=== PATIENT | female | born 1955 | race Caucasian/White ===

== ENCOUNTER → 2021-04-30 | Outpatient (CLI) | payer MEDICARE, OTHER | LOC: ORTHO 08:34 | PROVIDERS: ATTEND Orthopaedic Surgery | DX: M17.12 Unilateral primary osteoarthritis, left knee (principal) | CPT/HCPCS: 99203 ==

== ENCOUNTER → 2021-05-07 | Outpatient (CLI) | payer MEDICARE, OTHER ==
[~2021-05-07] MED LIST: ACET325C7 PO; ATOR10TA66 PO; CITA20TA12 PO; DIPH25TA65 PO; EMPA10TA PO; L.AC1CAP6 PO; LOSA50TA63 PO; MELO5CAP3 PO; METF-399 PO; MV-M1TAB20 PO; OMEP20TA7 PO
[2021-05-07 08:58] LABS: CLARITY,URINE CLEAR; COLOR,URINE YELLOW; GLUCOSE, URINE (UA) 3+ (NEGATIVE); KETONES,URINE TRACE (NEGATIVE); LEUKOCYTE ESTERASE ,URINE NEGATIVE (NEGATIVE); NITRITE,URINE NEGATIVE (NEGATIVE); PH,URINE 5.5 (5-9); PROTEIN,URINE TRACE (NEGATIVE)
[2021-05-07 09:02] LABS: CALCIUM 9.6 MG/DL (8.5-10.1)
[2021-05-07 09:06] LABS: CREATININE SERUM 1.01 MG/DL (0.60-1.30)
[2021-05-07 09:09] LABS: BASOPHILS % (AUTO) 0 % (0-10); EOSINOPHILS # (AUTO) 0.1 10^3/uL (0.0-0.3); EOSINOPHILS % (AUTO) 1 % (0-10); HEMATOCRIT 40 % (35-52); HEMOGLOBIN 12.4 g/dL (11.5-16.0); LYMPHOCYTES # (AUTO) 2.5 10^3/uL (1.0-4.0); LYMPHOCYTES % (AUTO) 34 % (12-44); MEAN CORPUSCULAR HEMOGLOBIN 29 pg (25-34); MEAN CORPUSCULAR HGB CONC 31 g/dL (32-36); MEAN CORPUSCULAR VOLUME 93 fL (80-99); MEAN PLATELET VOLUME 8.5 fL (9.0-12.2); MONOCYTES # (AUTO) 0.5 10^3/uL (0.0-1.0); MONOCYTES % (AUTO) 7 % (0-12); NEUTROPHILS # (AUTO) 4.1 10^3/uL (1.8-7.8); NEUTROPHILS % (AUTO) 57 % (42-75); PLATELET COUNT 241 10^3/uL (130-400); WHITE BLOOD COUNT 7.1 10^3/uL (4.3-11.0)
--- NOTE | 2021-05-07 09:11 | Diagnostic Imaging Report ---
INDICATION: Left knee pain. FINDINGS: Four views of the left knee show advanced degenerative changes of the medial tibiofemoral joint space and patellofemoral joint space with joint space narrowing and large osteophytes forming at the articular margins. The joint space is mildly narrowed. IMPRESSION: Tricompartmental degenerative changes. This is most severe in the medial tibiofemoral and patellofemoral joint compartments. Dictated by: Dictated on workstation # [id number]
[2021-05-07 09:20] LABS: BACTERIA,URINE FEW /HPF; BILIRUBIN,URINE 1+ (NEGATIVE); RBC,URINE RARE /HPF; SQUAMOUS EPITHELIAL CELL,UR 0-2 /HPF; WBC,URINE RARE /HPF
[2021-05-07 09:29] LABS: INR 0.9 (0.8-1.4); PROTHROMBIN TIME PATIENT 12.4 SEC (12.2-14.7)
== END ==
LOC: RAD 08:17
PROVIDERS: ATTEND Orthopaedic Surgery
DX: Z00.00 Encounter for general adult medical examination without abnormal findings (principal); M17.12 Unilateral primary osteoarthritis, left knee
CPT/HCPCS: 36415; 73564; 80048; 81000; 83036; 85025; 85610; 85730

== ENCOUNTER → 2021-05-12 | Outpatient (CLI) | payer MEDICARE, OTHER ==
[~2021-05-12] VITALS: Ht 152.4 cm; Wt 73.6 kg
== END | disposition home or self-care (01) ==
LOC: PREOP 05:38
PROVIDERS: ATTEND Orthopaedic Surgery
DX: Z01.818 Encounter for other preprocedural examination (principal)

== ENCOUNTER 2021-05-18 08:23 | Inpatient (IN) | payer MEDICARE, OTHER ==
[~2021-05-18] VITALS: Ht 152.4 cm; Wt 73.6 kg
[2021-05-18] VITALS (11 sets, daily range): BP systolic 104–160; BP diastolic 55–82
[2021-05-18] MEDS ORDERED: LACTATED RINGERS 1,000 ML IV PRN (08:45)
[2021-05-18] MEDS ORDERED: ceFAZolin INJECTION 1,000 MG VIAL IV ONE (08:45)
[2021-05-18] MEDS: LACTATED RINGERS 1,000 ML IV PRN ×2 (08:52→12:01)
[2021-05-18] MEDS ORDERED: MIDAZOLAM 2 MG/2 ML (VERSED) VIAL ONE ×2 (08:57→09:03)
[2021-05-18] MEDS ORDERED: ROPIVACAINE 5MG/ML 30ML VIAL ONE (08:57)
[2021-05-18] MEDS ORDERED: TRANEXAMIC ACID INJECTION 3,000 MG, SODIUM CHLORIDE 0.9% IRRIGATIO 150 ML IV NR ×2 (09:00)
[2021-05-18] MEDS ORDERED: ONDANSETRON 4 MG/2 ML (SDV) Z0FRAN ONE (09:02)
[2021-05-18] MEDS ORDERED: LIDOCAINE PF 2% 5 ML (XYLOCAINE) VIAL ONE (09:02)
[2021-05-18] MEDS ORDERED: fentaNYL INJ 100 MCG/2 ML AMP ONE ×2 (09:02→10:51)
[2021-05-18] MEDS ORDERED: SEVOFLURANE (ULTANE) 15 ML INHAL SOLN ONE (09:02)
[2021-05-18] MEDS ORDERED: proPOfol 200 MG/20 ML (DIPRIVAN) VIAL IV ONE (09:02)
[2021-05-18] MEDS ORDERED: TRANEXAMIC ACID 100 MG/ML 10 ML INJECTION ONE (09:02)
--- NOTE | 2021-05-18 09:58 | Progress Note-Pre Operative ---
Pre-Operative Progress Note H&P Reviewed The H&P was reviewed, patient examined and no changes noted. Date Seen by Provider: May 18, 2021 Time Seen by Provider: 09:50 Date H&P Reviewed: May 18, 2021 Time H&P Reviewed: 09:50 Pre-Operative Diagnosis: Left Knee Primary Osteoarthritis SCOT CHILDRESS MD May 18, 2021 09:58
--- NOTE | 2021-05-18 13:09 | Anesthesia-General Post-Op ---
General Patient Condition Mental Status/LOC: Same as Preop Cardiovascular: Satisfactory Nausea/Vomiting: Absent Respiratory: Satisfactory Pain: Controlled Complications: Absent Post Op Complications Complications None Follow Up Care/Instructions Patient Instructions None needed. Anesthesia/Patient Condition Patient Condition Patient is doing well, no complaints, stable vital signs, no apparent adverse anesthesia problems. No complications reported per nursing. GALO BATISTA CRNA May 18, 2021 13:09
[2021-05-18] MEDS ORDERED: morphine INJ 4 MG/ML 1 ML (VIAL/SYRINGE) IVP PRN (13:15)
[2021-05-18] MEDS ORDERED: MEPERIDINE (DEMEROL) INJ 50 MG/ML IVP ONE (13:15)
[2021-05-18] MEDS ORDERED: BISACODYL 5 MG (DULCOLAX) TABLET PO PRN (13:15)
[2021-05-18] MEDS ORDERED: PROMETHAZINE INJ 25 MG/ML (PHENERGAN) AMP IVP ONE (13:15)
[2021-05-18] MEDS ORDERED: ONDANSETRON 4 MG/2 ML (SDV) Z0FRAN IV PRN (13:15)
[2021-05-18] MEDS ORDERED: ACETAMINOPHEN 500 MG TAB (TYLENOL) PO PRN (13:15)
[2021-05-18] MEDS ORDERED: ONDANSETRON 4 MG/2 ML (SDV) Z0FRAN IVP PRN (13:15)
[2021-05-18] MEDS ORDERED: diphenhydrAMINE 25 MG TAB (BENADRYL) PO PRN (13:15)
[2021-05-18] MEDS ORDERED: MILK OF MAGNESIA 400 MG/5 ML 30 ML UDC PO PRN (13:15)
[2021-05-18] MEDS ORDERED: morphine INJ 10 MG/ML 1ML (SYR OR VIAL) IVP ONE (13:15)
--- NOTE | 2021-05-18 13:19 | Operative Report - Ortho ---
Operative Report Surgeon (s)/Road Advisor (s) Surgeon SCOT CHILDRESS MD Road Advisor n/a Pre-Operative Diagnosis Left Knee Primary Osteoarthritis Post-Operative Diagnosis same Operative Report Date of Procedure: May 18, 2021 Name of Procedure Performed: Left Total Knee Arthroplasty Description & Findings After obtaining informed consent and marking the patient in the preoperative holding area, the patient did receive IV antibiotics. Patient was taken to the operating room and anesthesia was induced. Surgical timeout was taken. The left lower extremity was prepped and draped in the usual sterile fashion. Incision was made and carried down to fascia. Arthrotomy was performed on the medial side of the patella. Patella was retracted laterally and knee was flexed. Found to have circumferential osteophtye around the distal femur as well as exposed bone in the medial compartment. Hole was made in the distal femur for the intramedullary distal femoral cutting guide. Resection was made then the femur was sized as a 3. 4-in-1 block for a size [address]. Anterior cut was made and there was no notch. Posterior cut was made followed by the chamfers. Box cut was performed. Lug holes were drilled. Attention was turned to the tibial side, extramedullary tibial guide was put into place and aligned with the tibial crest. It was set to take 2 mm off of the affected medial side. Drop kacie was used to confirm alignment. Resection was made and was parallel to the joint line. Tibial bone block was removed. Lamina unit secretary was put into place and the menisci and posterior osteophytes were removed. The knee was trialed with a size 3 femur and a size 2 tibia with a 9 mm poly trial. It was found to come out to full extension and flexed beyond 120 degrees. It was stable to varus and valgus stress throughout its range of motion. This was accepted. Knee was brought out into extension and the patella was measured at less than 20 mm of thickness. Osteophytes were removed from around the perimeter of the patella. Trial implants were removed. Tibial tray was pinned and punched. The cut bone surfaces were lavaged with pulsatile normal saline. Implants were opened and assembled on the back table. Cement was mixed. Cement was applied to the cut bone surface as well as the implant surface. A size 2 tibial component was impacted into placed and excess cement was removed using a [place]. A size 3 femoral component was impacted into place and excess cement was removed using a [place]. Tibial tray was lavaged with saline. A 9 mm thick polyethylene component was locked into placed and the locking mechanism was checked. Knee was brought into extension. The knee was irrigated with normal saline. Irrigation was removed and tranexamic acid was placed. A betadine soak was performed and the knee was irrigated again. Once the cement had set, the knee was once again trialed; found to come to full extension, flexed beyond 120 degrees, and was stable to varus and valgus stress. Further tranexamic acid was applied for hemostasis. Tourniquet was dropped and electrocautery was used for further hemostasis. Fascial layer was closed with #1 Ethibond. The subcutaneous layer was closed with 2-0 Vicryl. The skin was closed with a running subcuticular 3-0 V-loc. Wound was dressed with steri- strips, xeroform, 4x4s, ABD, webril, and NIDA wrap. Patient tolerated the procedure well and was stable to the recovery room. Anesthesia Type General plus regional Estimated Blood Loss 150 mL Specimen(s) collected/removed None SCOT CHILDRESS MD May 18, 2021 13:19
--- NOTE | 2021-05-18 13:27 | Diagnostic Imaging Report ---
INDICATION: Left knee surgery. TECHNIQUE: AP and lateral views of left knee are obtained. FINDINGS: There has been total left knee arthroplasty with gas and fluid in the knee joint and adjacent tissues. Alignment is normal. There is no fracture or malalignment. Atherosclerotic calcifications are noted. IMPRESSION: No evidence of immediate complication post recent total left knee arthroplasty. Dictated by: Dictated on workstation # [id number]
[2021-05-18] MEDS ORDERED: morphine INJ 10 MG/ML 1ML (SYR OR VIAL) ONE (13:31)
[2021-05-18] MEDS ORDERED: morphine INJ 4 MG/ML 1 ML (VIAL/SYRINGE) ONE (14:20)
--- NOTE | 2021-05-18 14:43 | Physical Therapy Progress Note ---
Therapy Progress Note Patient just returned from left TKR surgery and is too sedated to perform OOB activity. This PT place CPM 0-50 degrees and polar pack left LE. Family present and instructed for CPM to be removed by nursing staff after 2 hours. Family voices understanding 1 visit CPM/PADS ([id number]) TREVOR VILLEGAS PT May 18, 2021 14:43
[2021-05-18] MEDS: NS IV 1000 ML 1,000 ML IV SCH ×2 (14:50→15:02)
[2021-05-18] MEDS ORDERED: NICOTINE 7 MG (NICODERM) PATCH TD ONE (15:04)
[2021-05-18] MEDS ORDERED: KETOROLAC 30 MG/ML VIAL ONE (16:22)
[2021-05-18] MEDS: metFORMIN 500 MG (GLUCOPHAGE) TAB PO SCH (16:23)
[2021-05-18] MEDS: ASPIRIN E.C. 81 MG (ECOTRIN) TAB PO SCH (16:23)
[2021-05-18] MEDS: ceFAZolin INJECTION 1,000 MG in NS (IVPB) 50 ML IV SCH (20:18)
[2021-05-18] MEDS: DOCUSATE SODIUM 100 MG (COLACE) CAP PO SCH (20:20)
[2021-05-18] MEDS: AtorvaSTATin TABLET 10 MG TABLET PO SCH (20:20)
[2021-05-18] MEDS: CELECOXIB 100 MG (CeleBREX) CAP PO SCH (20:20)
[2021-05-18] MEDS ORDERED: NON-FORMULARY MEDICATION 1 EA EA (Metformin HCl 1,000 MG) PO SCH (21:00)
[2021-05-19] MEDS: ceFAZolin INJECTION 1,000 MG in NS (IVPB) 50 ML IV SCH (03:50)
[2021-05-19] MEDS: KETOROLAC 30 MG/ML VIAL IVP PRN ×3 (03:50→15:10)
[2021-05-19 03:51] VITALS: BP 136/63
[2021-05-19 05:39] LABS: HEMOGLOBIN 9.8 g/dL (11.5-16.0)
[2021-05-19] MEDS: MULTIVIT W/MINERALS TAB (THERAGRAN M) PO SCH (05:46)
[2021-05-19 08:00] VITALS: BP 126/74
--- NOTE | 2021-05-19 08:00 | Progress Note - Ortho ---
Progress Note Subjective Date of Exam 05/19/21 Chief Complaint POD #1 L TKA HPI/Events since last exam some difficulty with soreness, has been up and out of bed Review of Systems - Allergies: Coded Allergies: No Known Drug Allergies (Unverified , 05/12/21) Home Meds Reported Medications Omeprazole (Omeprazole) 20 Mg Tablet.dr, 20 MG PO DAILY, TAB 05/12/21 Acetaminophen (Tylenol) 325 Mg Capsule, 325 MG PO PRN, CAP 05/12/21 Diphenhydramine HCl (Benadryl Allergy) 25 Mg Tablet, 25 MG PO PRN, TAB 05/12/21 L.acidoph & Paracasei,B.lactis (Probiotic) 1 Each Capsule, 1 EACH PO DAILY, CAP 05/12/21 Mv-Mn/Iron/FA/Herbal Cmplx#190 (Vitamin D3 Complete Caplet) 1 Each Tablet, 1 EACH PO DAILY, TAB 05/12/21 Citalopram Hydrobromide (Celexa) 20 Mg Tablet, 20 MG PO DAILY, TAB 05/12/21 Atorvastatin Calcium (Atorvastatin Calcium) 10 Mg Tablet, 10 MG PO HS, TAB 05/12/21 Losartan Potassium (Losartan Potassium) 50 Mg Tablet, 50 MG PO DAILY, TAB 05/12/21 Metformin HCl (Metformin HCl) 1,000 Mg Tablet, 1000 MG PO BID, TAB 05/12/21 Meloxicam, Submicronized (Meloxicam) 5 Mg Capsule, 7.5 MG PO, CAP 05/12/21 Empagliflozin (Jardiance) 10 Mg Tablet, 10 MG PO DAILY, TAB 05/12/21 Objective Exam L Knee: Dressing C/D/superior portion of incision beginning to show, +DF of ankle, no s/s of DVT Vital Signs Vital Signs Date Time Temp Pulse Resp B/P (MAP) Pulse Ox O2 Delivery O2 Flow Rate FiO2 05/19/21 03:51 36.6 111 20 136/63 (87) 96 Nasal Cannula 2.00 05/18/21 23:08 36.8 100 20 121/58 (79) 97 Nasal Cannula 2.00 05/18/21 22:02 94 Nasal Cannula 2.00 05/18/21 20:15 91 Nasal Cannula 2.00 05/18/21 20:00 36.4 94 18 104/56 (72) 91 Nasal Cannula 2.00 05/18/21 16:20 35.9 100 19 115/55 (75) 95 Nasal Cannula 2.00 05/18/21 14:49 36.5 103 18 128/72 (90) 94 Nasal Cannula 2.00 05/18/21 13:54 Room Air 05/18/21 13:50 36.1 19 135/66 (89) 93 Room Air 05/18/21 13:40 20 133/71 (91) 93 OxyMask 2 05/18/21 13:30 20 142/82 (102) 96 OxyMask 2 05/18/21 13:30 OxyMask 2 05/18/21 13:20 20 132/70 (90) 94 OxyMask 2 05/18/21 13:15 OxyMask 3 05/18/21 13:10 18 141/66 (91) 96 OxyMask 4 05/18/21 12:59 37.1 16 114/71 (85) 98 OxyMask 6 05/18/21 12:59 OxyMask 6 05/18/21 08:35 36.2 98 20 160/80 (106) 94 Room Air I & O 05/19/21 07:00 Intake Total 2460 ml Output Total 400 ml Balance 2060 ml Lab Results Laboratory Tests 05/18/21 08:38: Glucometer 158H 05/19/21 05:28: Hemoglobin 9.8L, Hematocrit 33L Imaging 2 postop views of the left knee dated 05/18/21 were reviewed from PACS and demonstrated total knee arthroplasty without complication Assessment and Plan Assessment Left Knee Primary Osteoarthritis s/p L TKA Problem List Left Knee Primary Osteoarthritis s/p L TKA Plan PT/OT DVT Prophylaxis Proceed with dressing change today Plan for home with home health on Final Diagonsis Left Knee Primary Osteoarthritis s/p L TKA Level of the visit: Level 3 (global) SCOT CHILDRESS MD May 19, 2021 08:00
--- NOTE | 2021-05-19 08:28 | Anesthesia-Regional Post-Op ---
Regional Patient Condition Mental Status: Alert, Oriented x3 Circulation: Same as Pre-Op Headache: Absent Sensation: Full Recovery Motor Block: Absent Post Op Complications Complications None Follow Up Care/Instructions Patient Instructions None needed. Anesthesia/Patient Condition Patient is doing well, no complaints, stable vital signs, no apparent adverse anesthesia problems. No complications reported per nursing. BETTY TURNER CRNA May 19, 2021 08:28
--- NOTE | 2021-05-19 08:54 | Occupational Therapy Eval ---
OT Evaluation-General/PLF Medical Diagnosis Admission Date May 18, 2021 at 08:23 Medical Diagnosis: L TKR Onset Date: May 18, 2021 Therapy Diagnosis Therapy Diagnosis: L TKR Precautions Precautions/Isolations: Standard Precautions Safety Interventions: None Weight Bear Status Weight Bearing Restriction: Weight Bearing/Tolerated Location Restriction: L LE Referral Physician: Kayden Referral Reason: Evaluation/Treatment Medical History Current History post op day 1, s/p L TKR. Per patient, she lives with her daughter in a single story home. She was indep with all adls and shared iadl responsibilities with daughter. Pt was not using any AD prior to admission. Reviewed History: Yes Social History Home: Single Level Current Living Status: Children ADL-Prior Level of Function SCALE: Activities may be completed with or without assistive devices. 1-Iqladpckpb-feyaasw completes the activity by him/herself with no assistance from a helper. 5-Set-up or Clean-up Assistance-helper sets up or cleans up; patient completes activity. [place] assists only prior to or following the activity. 4-Supervision or Touching Assistance-helper provides verbal cues and/or touching/steadying and/or contact guard assistance as patient completes activity. Assistance may be provided throughout the activity or intermittently. 3-Partial/Moderate Assistance-helper does LESS THAN HALF the effort. [place] lifts, holds or supports trunk or limbs, but provides less than half the effort. 2-Substantial/Maximal Assistance-helper does MORE THAN HALF the effort. [place] lifts or holds trunk or limbs and provides more than half the effort. 8-Zkppqkeni-npajuv does ALL the effort. Patient does none of the effort to complete the activity. Or, the assistance of 2 or more helpers is required for the patient to complete the activity. If activity was not attempted, code reason: 7-Patient Refused. 9-Not Applicable-not attempted and the patient did not perform the activity before the current illness, exacerbation or injury. 10-Not Attempted due to Environmental Limitations-(lack of equipment, weather restraints, etc.). 88-Not Attempted due to Medical Conditions or Safety Concerns. Self Care: Independent Functional Cognition: Independent DME/Equipment: Grab Bars, Shower OT Current Status Subjective Pt reports pain in L knee as 7/10, states pain meds are to be given again in ~1 hour. Appearance Pt returned to sitting in recliner, all needs within reach, family in the room. Mental Status/Objective Patient Orientation: Person, Place, Situation Attachments: IV Current Glasses/Contacts: Yes Hand Dominance: Left Upper Extremity ROM WNL Upper Extremity Strength WNL ADL-Treatment Eating (QC): 6 Oral Hygiene (QC): 6 Upper Body Dressing (QC): 6 (per clinical judgment) Lower Body Dressing (QC): 4 On/Off Footwear (QC): 3 Toileting Hygiene (QC): 4 (per nurse report) Pt was up walking in the halls with physical therapy (SBA) at OT arrival. No unsteadiness or LOB observed. Sit<>stand: SBA. Pt able to don/doff R sock without difficulty. Requires assistance to don Left sock due to increase in pain with knee flexion. Pt reports daughter can assist post d/c. Anticipate improved independence with task once pain subsides and ROM improves. Per physical therapy, pt can be up ad caroline. Pt denies any self care concerns and RN states pt was able to use toilet without assistance. Education provided on care of incision during bathing task once discharged. No further OT services warranted at this time. Education OT Patient Education: Correct positioning, Modified ADL techniques, Purpose of tx/functional activities, Reviewed precautions Teaching Recipient: Patient, Family Teaching Methods: Discussion Response to Teaching: Verbalize Understanding OT Barge Pilot Goals Barge Pilot Goals 1=Demonstrate adherence to instructed precautions during ADL tasks. 2=Patient will verbalize/demonstrate understanding of assistive devices/modifications for ADL. 3=Patient will improve strength/tolerance for activity to enable patient to perform ADL's. OT Education/Plan Problem List/Assessment Assessment: No Skilled OT Needs ID'd Discharge Recommendations Plan/Recommendations: Discontinue OT Therapy Discharge Recommendati: Home & Family Treatment Plan/Plan of Care Treatment,Training & Education: Yes Patient would benefit from OT for education, treatment and training to promote independence in ADL's, mobility, safety and/or upper extremity function for ADL's. Plan of Care: ADL Retraining Treatment Duration: May 19, 2021 Frequency: 1 time per week Estimated Hrs Per Day: .25 hour per day Agreement: Yes Time/GCodes Start Time: 08:14 Stop Time: 08:24 Total Time Billed (hr/min): 10 Billed Treatment Time 1 visit Ofelia Mack OT May 19, 2021 08:54
--- NOTE | 2021-05-19 08:57 | Physical Therapy Evaluation ---
PT Evaluation-General Medical Diagnosis Admission Date May 18, 2021 at 08:23 Medical Diagnosis: left TKR Onset Date: May 18, 2021 Therapy Diagnosis Therapy Diagnosis: impaired mobility/weakness Weight Bear Status Right Lower Extremity: Right Full Weight Bearing Left Lower Extremity: Left Weight Bearing/Tolerated Referral Physician: Kayden Reason for Referral: Evaluation/Treatment Medical History Pertinent Medical History: Smoking Current History s/p elective left TKR Reviewed History: Yes Social History Home: Single Level Current Living Status: Alone Prior Prior Level of Function SCALE: Activities may be completed with or without assistive devices. 0-Urkyviojnp-ilgycuy completes the activity by him/herself with no assistance from a helper. 5-Set-up or Clean-up Assistance-helper sets up or cleans up; patient completes activity. [place] assists only prior to or following the activity. 4-Supervision or Touching Assistance-helper provides verbal cues and/or touching/steadying and/or contact guard assistance as patient completes activity. Assistance may be provided throughout the activity or intermittently. 3-Partial/Moderate Assistance-helper does LESS THAN HALF the effort. [place] lifts, holds or supports trunk or limbs, but provides less than half the effort. 2-Substantial/Maximal Assistance-helper does MORE THAN HALF the effort. [place] lifts or holds trunk or limbs and provides more than half the effort. 6-Jdnydaxvp-rkiwbn does ALL the effort. Patient does none of the effort to complete the activity. Or, the assistance of 2 or more helpers is required for the patient to complete the activity. If activity was not attempted, code reason: 7-Patient Refused. 9-Not Applicable-not attempted and the patient did not perform the activity before the current illness, exacerbation or injury. 10-Not Attempted due to Environmental Limitations-(lack of equipment, weather restraints, etc.). 88-Not Attempted due to Medical Conditions or Safety Concerns. Bed Mobility: 6 Transfers (B,C,W/C): 6 Gait: 6 Stairs: 6 Indoor Mobility (Ambulation): Independent Stairs: Independent Prior Devices Use: None PT Evaluation-Current Subjective Patient agrees to PT. Family present Pain Numeric Pain Scale: 5-Moderate Pain Location: Left Location Body Site: Knee Pain Description: Ache Objective Patient Orientation: Normal For Age ROM/Strength ROM Lower Extremities left knee flexion 60 degrees/extension 5 degrees right LE WFL Strength Lower Extremities left LE 3+/5 grossly/right LE 4/5 grossly Integumentary/Posture Integumentary refer to nursing notes Bowel Incontinence: No Bladder Incontinence: No Posture WFL Neuromuscular (Tone, Coordination, Reflexes) grossly intact Sensory Vision: Functional Hearing: Functional Transfers Lying to Sitting/Side of Bed(Q: 6 Sit to Stand (QC): 6 Chair/Svn-rz-Yymvz Xfer(QC): 6 Gait Does the Patient Walk?: Yes Mode of Locomotion: Walk Anticipated Mode of Locomotion: Walk Walk 10 feet (QC): 4 Walk 50 ft with 2 Turns(QC): 4 Walk 150 ft (QC): 4 Distance: 200' Gait Assistive Device: FWW Comments/Gait Description slow, antalgic gait sequence Balance Sitting Static: Normal Sitting Dynamic: Normal Standing Static: Good Standing Dynamic: Good Treatment left LE exercises 15 reps each QS, HS, SLR, LAQ Assessment/Needs 65 y.o. female, will benefit from skilled PT to address functional strength and mobility to improve current LOF. Per physician report, patient will dismiss to home tomorrow. Rehab Potential: Fair PT Oil Truck Driver Goals Oil Truck Driver Goals PT Halfway Goals Time Frame: May 23, 2021 Roll Left & Right (QC): 6 Sit to Lying (QC): 6 Lying-Sitting on Side/Bed(QC): 6 Sit to Stand (QC): 6 Chair/Kcd-gf-Pwskm Xfer(QC): 6 Walk 10 feet (QC): 6 Walk 50ft with 2 Turns (QC): 6 Walk 150 ft (QC): 6 PT Plan Treatment/Plan Treatment Plan: Continue Plan of Care Treatment Plan: Bed Mobility, Education, Functional Activity Juliet, Functional Strength, Gait, Safety, Therapeutic Exercise, Transfers Treatment Duration: May 23, 2021 Frequency: 11 times per week Estimated Hrs Per Day: .5 hour per day Time/GCodes Time In: 801 Time Out: 817 Total Billed Treatment Time: 16 Total Billed Treatment 1 visit EVMod 16 min TREVOR VILLEGAS PT May 19, 2021 08:57
[2021-05-19] MEDS: CELECOXIB 100 MG (CeleBREX) CAP PO SCH ×2 (09:26→19:32)
[2021-05-19] MEDS: ASPIRIN E.C. 81 MG (ECOTRIN) TAB PO SCH ×2 (09:27→17:55)
[2021-05-19] MEDS: LOSARTAN 50 MG (COZAAR) TAB PO SCH (09:27)
[2021-05-19] MEDS: EMPAGLIFLOZIN 10 MG TABLET (JARDIANCE) PO SCH (09:28)
[2021-05-19] MEDS: PANTOPRAZOLE 20 MG TABLET (PROTONIX) PO SCH (09:28)
[2021-05-19] MEDS: metFORMIN 500 MG (GLUCOPHAGE) TAB PO SCH ×2 (09:28→17:55)
[2021-05-19] MEDS: DOCUSATE SODIUM 100 MG (COLACE) CAP PO SCH ×2 (09:28→19:32)
[2021-05-19] MEDS: NICOTINE PATCH REMOVAL TP SCH (09:30)
[2021-05-19] MEDS: NICOTINE 7 MG (NICODERM) PATCH TD SCH (09:30)
[2021-05-19] MEDS: NS IV 1000 ML 1,000 ML IV SCH ×2 (10:02→17:56)
[2021-05-19 13:00] VITALS: BP 126/74
--- NOTE | 2021-05-19 13:56 | Physical Therapy Daily Note ---
PT Daily Note-Current Subjective Patient agrees to PT. Family present. Pain Numeric Pain Scale: 8 Location: Left Location Body Site: Knee Pain Description: Acute Comment: meds issued prior Mental Status Patient Orientation: Normal For Age Transfers SCALE: Activities may be completed with or without assistive devices. 5-Dwhtgtnpad-vvzoraz completes the activity by him/herself with no assistance from a helper. 5-Set-up or Clean-up Assistance-helper sets up or cleans up; patient completes activity. [place] assists only prior to or following the activity. 4-Supervision or Touching Assistance-helper provides verbal cues and/or touching/steadying and/or contact guard assistance as patient completes activity. Assistance may be provided throughout the activity or intermittently. 3-Partial/Moderate Assistance-helper does LESS THAN HALF the effort. [place] lifts, holds or supports trunk or limbs, but provides less than half the effort. 2-Substantial/Maximal Assistance-helper does MORE THAN HALF the effort. [place] lifts or holds trunk or limbs and provides more than half the effort. 1-Uxhaandgn-mbuems does ALL the effort. Patient does none of the effort to complete the activity. Or, the assistance of 2 or more helpers is required for the patient to complete the activity. If activity was not attempted, code reason: 7-Patient Refused. 9-Not Applicable-not attempted and the patient did not perform the activity before the current illness, exacerbation or injury. 10-Not Attempted due to Environmental Limitations-(lack of equipment, weather restraints, etc.). 88-Not Attempted due to Medical Conditions or Safety Concerns. Sit to Lying (QC): 6 Lying to Sitting/Side of Bed(Q: 6 Sit to Stand (QC): 6 Weight Bearing Right Lower Extremity: Right Full Weight Bearing Left Lower Extremity: Left Weight Bearing/Tolerated Gait Training Distance: 225' Walk 10 feet (QC): 6 Walk 50 ft with 2 Turns(QC): 6 Walk 150 ft (QC): 6 Gait Assistive Device: FWW VC's for reciprocal pattern/antalgic gait sequence Exercises Supine Ex: Ankle pumps, Quad Set, Heel Slides, Straight leg raise Supine Reps: 10 Seated Therapy Exercises: Long arc quads Seated Reps: 10 Assessment Patient progressing with treatment plan. Patient limits left knee extension due to pain. Education with patient on importance of "working through" the pain to improve ROM. Patient voices understanding. PT also educated patient on requesting pain medication every 4 hours or as ordered. PT Custodial Goals Colorer Machine Goals PT Colorer Machine Goals Time Frame: May 23, 2021 Roll Left & Right (QC): 6 Sit to Lying (QC): 6 Lying-Sitting on Side/Bed(QC): 6 Sit to Stand (QC): 6 Chair/Qay-pm-Sgnzv Xfer(QC): 6 Walk 10 feet (QC): 6 Walk 50ft with 2 Turns (QC): 6 Walk 150 ft (QC): 6 PT Plan Treatment/Plan Treatment Plan: Continue Plan of Care Treatment Plan: Bed Mobility, Education, Functional Activity Juliet, Functional Strength, Gait, Safety, Therapeutic Exercise, Transfers Treatment Duration: May 23, 2021 Frequency: 11 times per week Estimated Hrs Per Day: .5 hour per day Time/GCodes Time In: 1301 Time Out: 1328 Total Billed Treatment Time: 27 Total Billed Treatment 1 visit EX 15 min GT 12 min TREVOR VILLEGAS PT May 19, 2021 13:56
[2021-05-19 16:00] VITALS: BP 104/60
[2021-05-19] MEDS: AtorvaSTATin TABLET 10 MG TABLET PO SCH (19:32)
[2021-05-19 20:00] VITALS: BP 138/62
[2021-05-20 00:13] VITALS: BP 128/59
[2021-05-20 04:08] VITALS: BP 117/66
[2021-05-20 05:37] LABS: HEMOGLOBIN 9.6 g/dL (11.5-16.0)
[2021-05-20] MEDS: MULTIVIT W/MINERALS TAB (THERAGRAN M) PO SCH (06:02)
[2021-05-20 07:24] VITALS: BP 133/67
[2021-05-20] MEDS: EMPAGLIFLOZIN 10 MG TABLET (JARDIANCE) PO SCH (08:21)
[2021-05-20] MEDS: LOSARTAN 50 MG (COZAAR) TAB PO SCH (08:21)
[2021-05-20] MEDS: ASPIRIN E.C. 81 MG (ECOTRIN) TAB PO SCH (08:21)
[2021-05-20] MEDS: PANTOPRAZOLE 20 MG TABLET (PROTONIX) PO SCH (08:21)
[2021-05-20] MEDS: DOCUSATE SODIUM 100 MG (COLACE) CAP PO SCH (08:21)
[2021-05-20] MEDS: NICOTINE 7 MG (NICODERM) PATCH TD SCH (08:21)
[2021-05-20] MEDS: CELECOXIB 100 MG (CeleBREX) CAP PO SCH (08:21)
[2021-05-20] MEDS: metFORMIN 500 MG (GLUCOPHAGE) TAB PO SCH (08:21)
[2021-05-20] MEDS: NICOTINE PATCH REMOVAL TP SCH (09:47)
[2021-05-20] MEDS ORDERED: OXC5T PO (09:55)
[2021-05-20] MEDS ORDERED: ASPI-1238 PO (09:55)
--- NOTE | 2021-05-20 09:57 | Discharge Summary ---
Discharge Summary Hospital Course Hospital Course Date of Admission: May 18, 2021 at 08:23 Admission Diagnosis : Family Physician/Provider: Date of Discharge: 05/20/21 Discharge Diagnosis: [ Left Knee Primary Osteoarthritis s/p L TKA] Hospital Course: [Admitted on 05/18/21 and went to the operating room for left TKA. Tolerated the procedure well and was transferred to the regular floor. On the day of surgery, she was started on mechnical DVT prophylaxis and began in room therapy. On POD #1, she began chemical DVT prophylaxis and began to ambulate. Pain was controlled with oral medication. On POD #2, she was progressing well with therapy. Pain was controlled with oral medication and she was tolerating a regular diet. Home health therapy arrangements had been made. She was ready for discharge home with home health. ] Labs and Pending Lab Test: Laboratory Tests 05/20/21 05:20: Hemoglobin 9.6L, Hematocrit 32L Microbiology 05/18/21 MRSA Screen - Final, Complete MRSA not isolated Home Meds Active Aspirin EC (Aspirin) 81 Mg Tablet.dr 81 Mg PO BID WITH MEALS 12 Days Reported Omeprazole 20 Mg Tablet.dr 20 Mg PO DAILY Tylenol (Acetaminophen) 325 Mg Capsule 325 Mg PO PRN Benadryl Allergy (Diphenhydramine HCl) 25 Mg Tablet 25 Mg PO PRN Probiotic (L.acidoph & Paracasei,B.lactis) 1 Each Capsule 1 Each PO DAILY Vitamin D3 Complete Caplet (Mv-Mn/Iron/FA/Herbal Cmplx#190) 1 Each Tablet 1 Each PO DAILY Celexa (Citalopram Hydrobromide) 20 Mg Tablet 20 Mg PO DAILY Atorvastatin Calcium 10 Mg Tablet 10 Mg PO HS Losartan Potassium 50 Mg Tablet 50 Mg PO DAILY Metformin HCl 1,000 Mg Tablet 1,000 Mg PO BID Meloxicam (Meloxicam, Submicronized) 5 Mg Capsule 7.5 Mg PO Jardiance (Empagliflozin) 10 Mg Tablet 10 Mg PO DAILY Assessment/Pt Instructions WBAT with walker for assistance, dry dressing daily, home health therapy for ROM, strengthening, and gait training Discharge Physical Examination Vital Signs Vital Signs Date Time Temp Pulse Resp B/P (MAP) Pulse Ox O2 Delivery O2 Flow Rate FiO2 05/20/21 07:24 37.0 108 18 133/67 (89) 96 Nasal Cannula 2.00 Extremity: Other (L Knee: Incision C/D/I, +DF of ankle, no s/s of DVT) Allergies: Coded Allergies: No Known Drug Allergies (Unverified , 05/12/21) Discharge Summary Date of Admission May 18, 2021 at 08:23 Date of Discharge SCOT CHILRDESS MD May 20, 2021 09:57
--- NOTE | 2021-05-20 10:04 | D/C HH Face to Face Order ---
D/C Face to Face Orders Instructions for Patient Via [facility], Patient Instructions/FollowUp: WBAT on Left Leg, Walker for Assist, Dry Telfa Daily, Home Health Therapy, Follow up in ~[address] Dino Monique Physician to follow Patient: Dino Monique Discharge Diet for Home: ADA Diet Patient Data-Allergies,Ht & Wt Patient Allergies: Coded Allergies: No Known Drug Allergies (Unverified , 05/12/21) Home Health Need/Face to Face Date of Face to Face: May 20, 2021 Clinical Findings: Muscle weakness, Pain with ambulation I have seen Pt [id number]: Yes Discharged To: Home Diagnosis/Conditions: Left Knee Primary Osteoarthritis s/p L TKA Patient is Homebound due to: Muscle weakness, Pain w/ambulation Homebound Status Due to the above stated illness, injury or surgical procedure (medical condition or diagnosis) and associated clinical findings, the patient is homebound because of his/her inability to leave home except with aid of a supportive device and/or person AND leaving the home requires a considerable and taxing effort or is medically contraindicated. Pt req the following assistanc: Walker Home Health Nursing Orders Home Health Services Order: Physical Therapy-Evaluate & Treat Home Health Infusion Therapy Line Start Date: May 18, 2021 Therapy Orders Therapy Specific Orders: Gait training, Increase strength/endurance, Restore ROM Certify Stmt I certify that this patient is under my care and that I, a nurse practitioner or a physician; a public health training assistant working with me, had a face to face encounter that - meets the physician face to face encounter requirements with this patient as dated. DINO MONIQUE MD May 20, 2021 10:04
--- NOTE | 2021-05-20 10:33 | Physical Therapy Daily Note ---
PT Daily Note-Current Subjective Pt. in bed with family present . c/o pain at 5/10 in left knee. Hopes to go home today. Pain Numeric Pain Scale: 5-Moderate Pain Location: Left Location Body Site: Knee Pain Description: Throbbing Mental Status Patient Orientation: Normal For Age Transfers SCALE: Activities may be completed with or without assistive devices. 3-Aydwppxzvd-zazjyvq completes the activity by him/herself with no assistance from a helper. 5-Set-up or Clean-up Assistance-helper sets up or cleans up; patient completes activity. [place] assists only prior to or following the activity. 4-Supervision or Touching Assistance-helper provides verbal cues and/or touching/steadying and/or contact guard assistance as patient completes activity. Assistance may be provided throughout the activity or intermittently. 3-Partial/Moderate Assistance-helper does LESS THAN HALF the effort. [place] lifts, holds or supports trunk or limbs, but provides less than half the effort. 2-Substantial/Maximal Assistance-helper does MORE THAN HALF the effort. [place] lifts or holds trunk or limbs and provides more than half the effort. 5-Qyugcpbdl-ksuxok does ALL the effort. Patient does none of the effort to complete the activity. Or, the assistance of 2 or more helpers is required for the patient to complete the activity. If activity was not attempted, code reason: 7-Patient Refused. 9-Not Applicable-not attempted and the patient did not perform the activity before the current illness, exacerbation or injury. 10-Not Attempted due to Environmental Limitations-(lack of equipment, weather restraints, etc.). 88-Not Attempted due to Medical Conditions or Safety Concerns. Roll Left & Right (QC): 6 Sit to Lying (QC): 4 Lying to Sitting/Side of Bed(Q: 6 Sit to Stand (QC): 6 Chair/Xnd-uf-Agqfd Xfer(QC): 6 Weight Bearing Right Lower Extremity: Right Full Weight Bearing Left Lower Extremity: Left Weight Bearing/Tolerated Gait Training Does the Patient Walk?: Yes Walk 150 ft (QC): 6 Gait Persons Needed: 0 Gait Assistive Device: FWW 350 ft Mod I to SBA Exercises Supine Ex: Ankle pumps, Quad Set, Rolling, Heel Slides, Short Arc Quads, Straight leg raise (assisted) Supine Reps: 15 Seated Therapy Exercises: Sit to stand, Long arc quads Seated Reps: 12 Treatments as above Assessment Current Status: Good Progress meets goals for DC PT Shift Production Associate Goals Custodial Goals PT Shift Production Associate Goals Time Frame: May 23, 2021 Roll Left & Right (QC): 6 Sit to Lying (QC): 6 Lying-Sitting on Side/Bed(QC): 6 Sit to Stand (QC): 6 Chair/Kmm-rj-Siwli Xfer(QC): 6 Walk 10 feet (QC): 6 Walk 50ft with 2 Turns (QC): 6 Walk 150 ft (QC): 6 PT Plan Treatment/Plan Treatment Plan: Continue Plan of Care Treatment Plan: Bed Mobility, Education, Functional Activity [place], Functional Strength, Gait, Safety, Therapeutic Exercise, Transfers Treatment Duration: May 23, 2021 Frequency: 11 times per week Estimated Hrs Per Day: .5 hour per day Safety Risks/Education Patient Education: Gait Training, Transfer Techniques, Correct Positioning, Disease Process, Safety Issues Teaching Recipient: Patient Teaching Methods: Demonstration, Discussion Response to Teaching: Verbalize Understanding, Return Demonstration, Reinforcement Needed Time/GCodes Time In: 1000 Time Out: 1025 Total Billed Treatment Time: 25 Total Billed Treatment 1,EX15m,GT10m LAURA ALVAREZ SILK SCREEN PROCESSOR May 20, 2021 10:33
[2021-05-20 13:30] VITALS: BP 133/67
== END 2021-05-20 13:30 | disposition home health service (06) | DRG 470 ==
LOC: 4TH 08:23 → SURG 08:24 → 4TH 13:50
PROVIDERS: ADMIT Orthopaedic Surgery; ATTEND Orthopaedic Surgery
PROC: 0SRD0J9 Replacement of Left Knee Joint with Synthetic Substitute, Cemented, Open Approach (ICD-10-PCS; principal; 2021-05-18 10:16)
DX: M17.12 Unilateral primary osteoarthritis, left knee (principal); E11.9 Type 2 diabetes mellitus without complications; I10 Essential (primary) hypertension; E78.00 Pure hypercholesterolemia, unspecified; F17.210 Nicotine dependence, cigarettes, uncomplicated; K21.9 Gastro-esophageal reflux disease without esophagitis; Z83.3 Family history of diabetes mellitus; Z79.84 Long term (current) use of oral hypoglycemic drugs
CPT/HCPCS: 36415; 73560; 82947; 85014; 85018; 87081; 94760

== ENCOUNTER → 2021-07-02 | Outpatient (CLI) | payer MEDICARE, OTHER ==
[~2021-07-02] MED LIST changes: +ASPI-1238 PO; +OMEP20TA56 PO; -OMEP20TA7 PO; +OXC5T PO
--- NOTE | 2021-07-02 10:13 | Diagnostic Imaging Report ---
INDICATION: POSTOPERATIVE VISIT COMPARISON: 05/18/2021 FINDINGS: Two views of the left knee were obtained. Expected postoperative changes are seen from left knee total arthroplasty. Femoral and tibial components appear well-seated. There is no evidence of periprosthetic fracture. No unexpected radiopaque foreign bodies are identified. IMPRESSION: Expected postsurgical changes from left knee total arthroplasty, as described above. No unexpected radiopaque foreign bodies. Dictated by: Dictated on workstation # [id number]
== END ==
LOC: ORTHO 09:09
PROVIDERS: ATTEND Orthopaedic Surgery
DX: Z47.89 Encounter for other orthopedic aftercare (principal); Z98.890 Other specified postprocedural states; Z96.652 Presence of left artificial knee joint
CPT/HCPCS: 73560

== ENCOUNTER → 2021-08-11 | Outpatient (CLI) | payer MEDICARE, OTHER | LOC: ORTHO 09:18 | PROVIDERS: ATTEND Orthopaedic Surgery | DX: Z47.89 Encounter for other orthopedic aftercare (principal); Z98.890 Other specified postprocedural states ==

== ENCOUNTER → 2022-05-25 | Outpatient (CLI) | payer MEDICARE, OTHER ==
--- NOTE | 2022-05-25 17:37 | Diagnostic Imaging Report ---
INDICATION: Left knee pain. AP and lateral views of the left knee are obtained and compared with Left knee prosthesis appears in good alignment, without evidence of device loosening or acute fracture. IMPRESSION: Well-aligned left knee prosthesis with no acute abnormality. Dictated by: Dictated on workstation # [id number]
== END ==
LOC: ORTHO 14:17
PROVIDERS: ATTEND Orthopaedic Surgery
DX: M25.562 Pain in left knee (principal)
CPT/HCPCS: 73560; G0463; 99213